=== PATIENT | female | born 1955 | race Caucasian/White ===

== ENCOUNTER 2018-09-14 08:28 | Day surgery (SDC) | payer MEDICAID ==
[~2018-09-14 08:28] MED LIST: CEFAZOLIN 2 GM in SOD CHLORIDE 0.9% 50 ML IVPB; SOD CHLORIDE 0.9% 1,000 ML IV
[2018-09-14] MEDS ORDERED: ISOSULFAN BLUE 1% 5 ML INJ SC (15:26)
[2018-09-14] MEDS ORDERED: ONDANSETRON 4 MG INJ IV (15:30)
[2018-09-14] MEDS ORDERED: hydrALAzine 20 MG INJ IV (15:30)
[2018-09-14] MEDS ORDERED: LABETALOL HCL 20MG INJ IV (15:30)
[2018-09-14] MEDS ORDERED: LIDOCAINE 2% (SDV) 5 ML INJ (15:48)
[2018-09-14] MEDS ORDERED: PROPOFOL 20 ML (15:48)
[2018-09-14] MEDS ORDERED: CEFAZOLIN 1 GM INJ (15:58)
[2018-09-14] MEDS ORDERED: FENTAnyl 50 MCG/ML VIAL (15:59)
[2018-09-14] MEDS ORDERED: ROPIVACAINE 0.2% 20 ML VIAL (16:28)
[2018-09-14] MEDS ORDERED: ONDANSETRON 4 MG INJ (16:41)
[2018-09-14] MEDS: HYDROmorphONE 1 MG/5 ML IV SYRINGE IV ×2 (17:23→17:43)
[2018-09-14] MEDS: OXYCODONE/ACETAMINOPHEN (5/325) TAB PO (17:33)
== END 2018-09-14 18:46 | disposition home or self-care (01) ==
LOC: SDS 08:28
DX: D05.12 Intraductal carcinoma in situ of left breast (principal); E78.5 Hyperlipidemia, unspecified; E11.9 Type 2 diabetes mellitus without complications
CPT/HCPCS: 19301; 88307

== ENCOUNTER 2018-11-21 10:25 | Day surgery (SDC) | payer MEDICAID ==
[~2018-11-21 10:25] MED LIST changes: -CEFAZOLIN 2 GM in SOD CHLORIDE 0.9% 50 ML IVPB
[2018-11-21] MEDS ORDERED: OXYCODONE/ACETAMINOPHEN (5/325) TAB PO ×2 (11:00)
[2018-11-21] MEDS ORDERED: HYDROmorphONE 1 MG/5 ML IV SYRINGE IV ×2 (11:00)
[2018-11-21 11:25] LABS: ADD MAN DIFF? NO
[2018-11-21 11:29] LABS: WHITE BLOOD COUNT 5.6 10^3/ul (4.8-10.8)
[2018-11-21 11:29] LABS: BASOPHIL # 0.1 10^3/ul (0.0-0.1); BASOPHILS % 0.9 % (0.0-2.0); EOSINOPHILS # 0.2 10^3/ul (0.0-0.5); EOSINOPHILS % 2.7 % (0.0-7.0); HEMATOCRIT 36.2 % (37.0-47.0); HEMOGLOBIN 11.7 g/dl (12.0-16.0); LYMPHOCYTES # 2.1 10^3/ul (0.8-2.9); LYMPHOCYTES % 37.3 % (15.0-51.0); MEAN CORPUSCULAR HGB CONC 32.3 g/dl (32.0-37.0); MEAN CORPUSCULAR VOLUME 83.6 fl (82.0-101.0); MEAN PLATELET VOLUME 9.9 fl (7.4-10.4); MONOCYTE # 0.6 10^3/ul (0.3-0.9); MONOCYTES % 11.4 % (0.0-11.0); NEUTROPHIL # 2.7 10^3/ul (1.6-7.5); NEUTROPHILS % 47.3 % (39.0-77.0); PLATELET COUNT 292 10^3/UL (140-415); RED BLOOD COUNT 4.33 10^6/ul (4.20-5.40); RED CELL DISTRIBUTION WIDTH 13.2 % (11.5-14.5)
[2018-11-21 11:50] LABS: INR 0.87; PARTIAL THROMBOPLASTIN TIME 26.8 Sec (23.0-35.0); PROTIME 11.9 Sec (11.9-14.9); PT RATIO 0.9
[2018-11-21 11:52] LABS: ALANINE AMINOTRANSFERASE 25 IU/L (13-69); ALBUMIN 4.2 g/dl (3.3-4.9); ALBUMIN/GLOBULIN RATIO 1.23; ALKALINE PHOSPHATASE 88 IU/L (42-121); ANION GAP 7 (5-13); ASPARTATE AMINO TRANSFERASE 23 IU/L (15-46); BILIRUBIN,INDIRECT 0.3 mg/dl (0-1.1); BILIRUBIN,TOTAL 0.3 mg/dl (0.2-1.3); BLOOD UREA NITROGEN 13 mg/dl (7-20); CALCIUM 9.4 mg/dl (8.4-10.2); CARBON DIOXIDE 27 mmol/L (21-31); CHLORIDE 107 mmol/L (97-110); CREATININE 0.51 mg/dl (0.44-1.00); Estimated GFR > 60 mL/min (>60); GLUCOSE 131 mg/dl (70-220); SODIUM 141 mmol/L (135-144); TOTAL PROTEIN 7.6 g/dl (6.1-8.1)
[2018-11-21] MEDS ORDERED: PROPOFOL 20 ML (11:52)
[2018-11-21] MEDS ORDERED: FENTAnyl 50 MCG/ML VIAL (11:52)
[2018-11-21] MEDS ORDERED: MIDAZOLAM 1 MG/ML 2 ML INJ (11:52)
[2018-11-21] MEDS ORDERED: CEFAZOLIN 1 GM INJ (11:52)
[2018-11-21] MEDS ORDERED: LIDOCAINE 2% (SDV) 5 ML INJ (11:52)
[2018-11-21] MEDS: ISOSULFAN BLUE 1% 5 ML INJ SC (12:27)
[2018-11-21] MEDS ORDERED: DEXAMETHASONE 4 MG/ML 5 ML INJ (12:39)
[2018-11-21] MEDS ORDERED: ONDANSETRON 4 MG INJ (12:39)
[2018-11-21] MEDS ORDERED: FAMOTIDINE 20 MG INJ (12:39)
[2018-11-21] MEDS ORDERED: METOCLOPRAMIDE 10 MG INJ (12:39)
[2018-11-21] MEDS: CEFAZOLIN 2 GM/50 ML (PMX) 50 ML IVPB (13:54)
[2018-11-21] MEDS: HYDROmorphONE 1 MG/5 ML IV SYRINGE IV (14:10)
[2018-11-21] MEDS: ONDANSETRON 4 MG INJ IV (14:17)
[2018-11-21] MEDS: MEPERIDINE 25 MG INJ IV (14:17)
== END 2018-11-21 16:45 | disposition home or self-care (01) ==
LOC: SDS 10:25
DX: C50.912 Malignant neoplasm of unspecified site of left female breast (principal); D36.0 Benign neoplasm of lymph nodes; E78.5 Hyperlipidemia, unspecified; R73.03 Prediabetes; R94.31 Abnormal electrocardiogram [ECG] [EKG]
CPT/HCPCS: 38525; 80053; 85025; 85610; 85730; 88307; 93005

== ENCOUNTER 2019-01-03 20:52 | Emergency (ER) | payer MEDICAID ==
[2019-01-03] MEDS: ONDANSETRON 4 MG INJ IV (21:52)
[2019-01-03] MEDS: LACTATED RINGER'S 1,000 ML IV (21:52)
[2019-01-03 22:28] LABS: ADD MAN DIFF? NO
[2019-01-03 22:29] LABS: WHITE BLOOD COUNT 13.5 10^3/ul (4.8-10.8)
[2019-01-03 22:29] LABS: ABNORMAL IP MESSAGE 1; HEMATOCRIT 35.7 % (37.0-47.0); HEMOGLOBIN 11.9 g/dl (12.0-16.0); MEAN CORPUSCULAR HEMOGLOBIN 27.1 pg (29.0-33.0); MEAN CORPUSCULAR HGB CONC 33.3 g/dl (32.0-37.0); MEAN CORPUSCULAR VOLUME 81.3 fl (82.0-101.0); NUCLEATED RED BLOOD CELLS% 0.3 /100WBC (0.0-0.0); PLATELET COUNT 295 10^3/UL (140-415); RED BLOOD COUNT 4.39 10^6/ul (4.20-5.40); RED CELL DISTRIBUTION WIDTH 13.2 % (11.5-14.5)
[2019-01-03 22:35] LABS: POSITIVE DIFF @See below
[2019-01-03 22:51] LABS: ALANINE AMINOTRANSFERASE 67 IU/L (13-69); ALBUMIN 4.3 g/dl (3.3-4.9); ALBUMIN/GLOBULIN RATIO 1.19; ALKALINE PHOSPHATASE 106 IU/L (42-121); ANION GAP 10 (5-13); ASPARTATE AMINO TRANSFERASE 37 IU/L (15-46); BILIRUBIN,INDIRECT 0.4 mg/dl (0-1.1); BILIRUBIN,TOTAL 0.4 mg/dl (0.2-1.3); BLOOD UREA NITROGEN 12 mg/dl (7-20); CALCIUM 9.4 mg/dl (8.4-10.2); CARBON DIOXIDE 24 mmol/L (21-31); CHLORIDE 108 mmol/L (97-110); CREATININE 0.48 mg/dl (0.44-1.00); Estimated GFR > 60 mL/min (>60); GLUCOSE 135 mg/dl (70-220); LIPASE 36 U/L (23-300); SODIUM 142 mmol/L (135-144); TOTAL PROTEIN 7.9 g/dl (6.1-8.1)
[2019-01-03] MEDS: morphine 4 MG/ML VIAL IV (23:00)
[2019-01-03] MEDS: SOD CHLORIDE 0.9% 1,000 ML IV (23:00)
[2019-01-03 23:02] LABS: TROPONIN-I < 0.012 ng/ml (0.000-0.120)
[2019-01-03 23:03] LABS: ANISOCYTOSIS 2+ (0-0); BAND NEUTROPHILS #M 1.8 10^3/ul (0.0-0.6); BAND NEUTROPHILS % (M) 14 % (0-4); EOSINOPHILS % (M) 1 % (0-7); GIANT THROMBO% (M) 1 % (0-0); LYMPHOCYTES #M 3.1 10^3/ul (0.8-2.9); LYMPHOCYTES % (M) 23 % (15-51); MICROCYTOSIS 1+ (0-0); MONOCYTE #M 1.3 10^3/ul (0.3-0.9); MONOCYTES % (M) 10 % (0-11); PLATELET ESTIMATE NORMAL; POLYCHROMASIA 1+ (0-0); REACTIVE LYMPHOCYTES #M 0.4 10^3/ul (0.0-0.0); REACTIVE LYMPHOCYTES% (M) 3 % (0-0); SEG NEUT #M 6.9 10^3/ul (1.6-7.5); SEGMENTED NEUTROPHILS (M) % 49 % (39-77); SMUDGE%M 5 % (0-0)
== END 2019-01-04 00:21 | disposition home or self-care (01) ==
LOC: E/R 01-04 00:21
DX: K52.9 Noninfective gastroenteritis and colitis, unspecified (principal); I10 Essential (primary) hypertension; R51 Headache; C50.912 Malignant neoplasm of unspecified site of left female breast
CPT/HCPCS: 36415; 70450; 71045; 80053; 83690; 84484; 85025; 93005; 96374; 96375; 99285-25